=== PATIENT | male | born 1955 | race Caucasian/White ===

== ENCOUNTER 2021-11-18 08:43 | Emergency (ER) | payer BC, SELFPAY ==
--- NOTE | 2021-11-18 08:53 | DI.RAD.S_ITS ---
PROCEDURE: XR ELBOW LT MIN 3V INDICATIONS: fall on elbow, pain swelling TECHNIQUE: 4 views of the elbow were acquired. COMPARISON: None. FINDINGS: Elbow effusion. Slight cortical irregularity along the lateral supracondylar region extending towards the joint space, not clearly delineated by radiograph. IMPRESSION: Cortical irregularity concerning for nondisplaced lateral supracondylar fracture given the elbow effusion. Dictated by: Hood Gamboa M.D. on 11/18/2021 at 8:13 Approved by: Hood Gamboa M.D. on 11/18/2021 at 8:17
[2021-11-18 08:54] VITALS: BP 121/77; PULSE 72; RESP 16; TEMP 36.9; O2SAT 99; BMI 28.3
--- NOTE | 2021-11-18 09:01 | ED.UPPEXIN ---
HPI - Extremity Injury (Upper) General Chief Complaint: Extremity Injury, Upper Stated Complaint: fell on lt elbow Time Seen by Provider: 11/18/21 09:00 Source: patient Mode of arrival: Ambulatory Limitations: no limitations History of Present Illness HPI narrative: This is a 66-year-old male with history of ITP and chronic kidney disease after injury to the renal vessel on removal of his IVC filter anticoagulated on Eliquis. Patient states that he fell yesterday while playing pickleball. Patient was on the court he fell backwards landing with his arm outstretched in his elbow bent leaning on the elbow and then falling onto his back. Patient denies any head injury, neck pain, back pain, denies any chest pain or shortness of breath. He is pain at the elbow increased pain with movement. No numbness or tingling. Does have some swelling down the arm. His wedding ring is present he is had trouble removing it. Patient denies any bony injury elsewhere. He has some abrasions states his tetanus is up-to-date. Patient states not allergic but is not supposed to have NSAIDs secondary to his chronic kidney disease. Denies tobacco or illicit. [place] state. Related Data Previous Rx's Medication Instructions Recorded oxycodone 5 mg tablet 5 mg PO Q6H PRN pain #10 tabs 11/18/21 Review of Systems Review of Systems ROS Unobtainable: All systems reviewed & are unremarkable except as noted in HPI and below Exam Narrative Exam Narrative: GEN: well nourished, well appearing male, alert and oriented x 3, patient appears to be in mild distress. HEENT: Atraumatic, pupils are equal round reactive to light, extraocular movements are intact, nares are clear, no facial trauma. HEART: Regular rate and rhythm without murmur, clicks, rubs. Pulses are equal in upper extremities LUNGS:Lungs clear to auscultation, no wheezes, rales, crackles, chest moves symmetrically ABD:bowel sounds normal, soft, non-tender, no guarding, rebound, rigidity, no masses noted, no hepatosplenomegaly MSCL: Patient is very mild tenderness over the elbow, obvious swelling with abrasion on the lateral aspect, no obvious deformity, patient does have increased pain and can not fully extend at the elbow but does have some flexion extension to 45?. Patient has normal range of motion at the wrist with full flexion, extension, ulnar and radial deviation, patient also has full extension and flexion and adduction and abduction of fingers, no muscle atrophy, muscles strength 5/5 upper extremities, full range of motion except for elbow. NEURO:CN 2-12 intact, sensation normal SKIN: see above. Initial Vital Signs Initial Vital Signs: Vital Signs Temperature 98.4 F 11/18/21 08:54 Pulse Rate 72 11/18/21 08:54 Respiratory Rate 16 11/18/21 08:54 Blood Pressure 121/77 11/18/21 08:54 Pulse Oximetry 99 11/18/21 08:54 Oxygen Delivery Method 11/18/21 08:54 Course Orders Ordered: ED Orders 11/18/21 08:53 XR elbow LT min 3V Stat Consultations Consultation #1: [facility], orthopedic surgery. Recommends posterior splint, sling and follow-up in 1-2 weeks for repeat imaging. Time: 09:36 Vital Signs Vital signs: Vital Signs - 8 hr 11/18/21 08:54 Temperature 98.4 F Pulse Rate 72 Respiratory Rate 16 Blood Pressure 121/77 Pulse Oximetry 99 Oxygen Delivery Method Room Air MDM - Extremity Injury (Upper) Imaging Data Extremity x-ray #1: Radiologist's Impression: Close Elbow X-Ray (Signed) Hood Gamboa - 11/18/21 Launch?[place] [address] XRay Report Signed Patient: Hernan Lu MR#: [id number] : 1955 Acct:[id number] Age/Sex: 66 / M Date of Service: 11/18/21 Loc: ED Accession Number: [id number] ?? Procedure: XR elbow LT min 3V Ordering Provider: Madeleine Koenig D.O. PROCEDURE:? XR ELBOW LT MIN 3V ? INDICATIONS:? fall on elbow, pain swelling ? TECHNIQUE:? 4 views of the elbow were acquired.? ? COMPARISON:? None. ? FINDINGS:? ? Elbow effusion.? Slight cortical irregularity along the lateral supracondylar region extending towards the joint space, not clearly delineated by radiograph. ? ? IMPRESSION:? Cortical irregularity concerning for nondisplaced lateral supracondylar fracture given the elbow effusion. ? ? Dictated by: Hood Gamboa M.D. on 11/18/2021 at 8:13 ? ? Approved by: Hood Gamboa M.D. on 11/18/2021 at 8:17?? [facility] Narrative Medical decision making narrative: This is a 66-year-old male with mechanical fall while playing pickleball with injury to the left elbow with pain patient has decreased range of motion swelling with abrasion, no signs of infection. Patient appears neurovascularly intact suspect potential fracture, x-ray shows small cortical irregularity but no clear fracture, based on patient's exam suspicion is high. Discussed with Orthopedic surgery as for posterior splint, sling and follow up. Patient notes [place]. Was given a disc they have a local orthopedic surgeon they just saw last week that they can follow-up with. Prescription for pain management, return precautions. Splint was placed by nursing. Patient neurovascularly intact pre and post. Discharge Plan Departure Patient Disposition: Home Clinical Impression: Supracondylar fracture of humerus Instructions: DI for Elbow Fracture Activity Restrictions/Additional Instructions: Follow-up with orthopedic surgery for recheck in 1-2 weeks. Call tomorrow morning to set up an appointment. Take the discs with your images with you to your orthopedic surgeon back home. Your imaging today shows possible fracture supracondylar to the elbow. Orthopedic surgery plans to repeat your imaging with follow-up. You may take Tylenol up to a 1000 mg every 6 hours as needed for pain if in adequate you may take 1-2 tablets of narcotic pain medication every 6 hours in addition to Tylenol. Prescription sent to [facility]. Splint Care: Keep splint clean and dry. Elevated affected body part to decrease swelling. OK to use ice pack on the affected body part. Use for 15-20 minutes each time, for 5-6x per day. If you develop worsening pain, numbness, tingling, discoloration of the affected body part, loosen the splint by loosening the RAUL wrap, and either see your doctor for an urgent re-assessment, or return to the Emergency Department. Return to the Emergency Department for any new or worsening symptoms. Prescriptions: New oxycodone 5 mg tablet 5 mg PO Q6H PRN (Reason: pain) Qty: 10 0RF Referrals: Ellen Hussein MD [Physician] - Visit Report Forms: Patient Portal/API
[2021-11-18 10:13] VITALS: BP 153/76; PULSE 42; O2SAT 95
== END 2021-11-18 10:33 | disposition home or self-care (01) ==
PROVIDERS: Emergency Provider Emergency Medicine
DX: S42.412A Displaced simple supracondylar fracture without intercondylar fracture of left humerus, initial encounter for closed fracture (principal); W19.XXXA Unspecified fall, initial encounter
CPT/HCPCS: 29125; 73080; 99283; 99284